=== PATIENT | female | born 1990 | race Caucasian/White ===

== ENCOUNTER 2017-08-20 14:24 | Outpatient (CLI) | payer BC, OTHER | END 2017-08-20 14:25 | disposition home or self-care (01) | LOC: BICULT 14:24 | PROVIDERS: ATTEND Family Medicine | DX: N83.209 Unspecified ovarian cyst, unspecified side (principal); R10.2 Pelvic and perineal pain; G43.909 Migraine, unspecified, not intractable, without status migrainosus | CPT/HCPCS: 76856 ==

== ENCOUNTER 2018-01-23 08:42 | Inpatient (IN) | payer BC, OTHER ==
[2018-01-23 09:52] LABS: ALT (SGPT) 26 U/L (8-55); AST (SGOT) 20 U/L (5-34); Alkaline Phosphatase 78 U/L (40-150); Anion Gap 10 mmol/L (10-20); BUN (Urea Nitrogen) 6 mg/dL (7.0-18.7); Bilirubin, Total 0.4 mg/dL (0.2-1.2); Calc. Creatinine Clearance 0 mL/min (70-130); Calcium 9.3 mg/dL (7.8-10.44); Carbon Dioxide 24 mmol/L (22-29); Chloride 110 mmol/L (98-107); Estimated GFR-MDRD 78; Globulin 2.8 g/dL (2.4-3.5); Glucose 97 mg/dL (70-105); Potassium 4.2 mmol/L (3.5-5.1); Protein, Total 6.8 g/dL (6.0-8.3); Sodium 140 mmol/L (136-145)
[2018-01-23 09:55] LABS: #Basophils 0.1 thou/uL (0.0-0.2); #Eosinphils 0.4 thou/uL (0.0-0.7); #Lymphocytes 2.8 thou/uL (1.20-3.40); #Monocytes 0.8 thou/uL (0.11-0.59); #Neutrophils 9.3 thou/uL (1.40-6.50); %Basophils 0.6 % (0.0-1.0); %Lymphocytes 20.9 % (21.0-51.0); %Monocytes 5.7 % (0.0-10.0); %Neutrophils 69.9 % (42.0-75.0); Hemoglobin 11.5 g/dL (12.0-16.0); Hypochromia SLIGHT = 6-15 cells (100X) (0-5/hpf); MDiff Complete? YES; Mean Corpuscular HGB CONC 31.8 g/dL (32.0-36.0); Mean Corpuscular Hemoglobin 22.9 pg (27.0-31.0); Microcytosis SLIGHT = 6-15 cells (100X) (0-5/hpf); PLT Morphology Comment Appears Adequate; Platelet Count 382 thou/uL (130-400); Red Blood Cell (RBC) Count 5.01 mill/uL (4.20-5.40); White Blood Cell (WBC) Count 13.3 thou/uL (4.8-10.8)
--- NOTE | 2018-01-23 10:12 | CT ---
CT FACIAL BONES WITHOUT CONTRAST: Date: 01/23/18 Multiple axial tomograms obtained through facial bones without IV enhancement. INDICATION: Soft tissue swelling over right eye. Pain and swelling right eye. FINDINGS: Evaluation of subcutaneous abscess is limited without IV contrast. There is a subtle area of low atte nuation within the subcutaneous tissues of the right eyelid measuring approximately 1.0 cm, which cou ld potentially represent a small fluid or abscess collection. No other definite evidence of fluid or abscess. Process is preseptal. Retroorbital structures appear unremarkable and symmetric. The paranasal sinuses are well aerated. There is a mucus retention cyst in a left sphenoid air cell m easuring 1.0 cm. The mastoid air cells are well aerated and clear. There is no osseous abnormality se en. IMPRESSION: Soft tissue edema and inflammatory change agent the right eye consistent with the history of celluliti s. Evaluation of abscess is limited without IV contrast. A subtle area of low attenuation within the subcutaneous tissues over the right eyelid could potentially represent a small fluid/abscess collecti on. No other significant findings. POS: LORRI
[2018-01-23] MEDS ORDERED: Fentanyl 100 MCG/2 ML VIAL ONE ×2 (10:17→11:50)
[2018-01-23] MEDS ORDERED: Piperacillin/Tazobactam 4.5 GM VIAL ONE (10:17)
[2018-01-23] MEDS ORDERED: Sodium Chloride 0.9% 0 ML ONE (10:20)
[2018-01-23 13:32] VITALS: BMI 39.2
[2018-01-23] MEDS ORDERED: Calcium Carbonate 500 MG ChewTAB PO PRN (14:01)
[2018-01-23] MEDS ORDERED: Acetaminophen 325 MG TAB PO PRN (14:01)
[2018-01-23] MEDS ORDERED: traMADol HCl 50 MG TAB PO PRN (14:12)
[2018-01-23] MEDS ORDERED: Fentanyl 100 MCG/2 ML VIAL SLOW IVP PRN (14:22)
--- NOTE | 2018-01-23 14:33 | PDOC.FPRHP ---
- History of Present Illness Chief Complaint: Rt eye swelling and pain History of Present Illness: 27 yo F w/o significant PMH presents for rt eye swelling and pain. Reports symptoms started Sunday with a localized pustule on the rt medial brow ridge which subsequently worsened to a point her eye became swollen shut by AM. She has sought treatment at urgent care and was given medication for pain control and an incision and drainage was performed. She denies vision loss. She reports pain in the indurated area in addition to her rt maxiallary sinus with radiation into her teeth. She has occasional pain with eye movement when her eyelid is closed. She denies any inciting events/trauma to the area. Reports some nausea with use of pain medications, but otherwise denies fever, chills, sweats, cough, neck pain, dysphagia, odynophagia, cp, sob. ED Course: 1gm vancomycin, 3.375 gm zosyn, fentanyl 50mcg - Allergies/Adverse Reactions Allergies Allergy/AdvReac Type Severity Reaction Status Date / Time morphine Allergy Verified 01/26/15 09:43 - Home Medications Medication Instructions Recorded Confirmed Type MedroxyPROGESTERone [Depo-Provera] 150 mg IM Q90D 01/26/15 01/23/18 History Pregabalin [Lyrica] 150 mg PO QPM 01/23/18 01/23/18 History - History PMHx: None PSHx: None FHx: Paternal and maternal DMII and cardiac disease, unknown type Social: Denies tobacco, social alcohol, denies drugs - Review of Systems General: denies: fever/chills, weight/appetite/sleep changes Eyes: reports: eye pain. denies: vision changes ENT: denies: nasal congestion, rhinorrhea Respiratory: denies: cough, congestion, shortness of breath Cardiovascular: denies: chest pain, edema Gastrointestinal: reports: nausea. denies: vomiting, diarrhea, constipation, abdominal pain Genitourinary: denies: incontinence, dysuria Skin: reports: lesions. denies: itching Musculoskeletal: denies: pain, tenderness Neurological: reports: numbness. denies: weakness - Vital signs BP: 125/84 HR: 76 RR: 16 Tmax: 98.7 Pox: 100% on RA Wt: 127Kg - Physical Exam Constitutional: NAD, awake, alert and oriented, well developed HEENT: normocephalic and atraumatic, PERRLA, EOMI, conjunctiva clear, grossly normal vision, grossly normal hearing -HEENT: no chemosis, EOMI, no proptosis, no conjunctival injection. Significantly swollen Rt eyelid w/ approx 1cm area of induration on the rt superomedial aspect of orbit. Punctate erythematous papule rt brow ridge, w/o drainage Neck: supple, trachea midline, no LAD Heart: RRR, normal S1/S2, no murmurs/rubs/gallops, pulses present Lungs: CTAB, no respiratory distress, good air movement, no wheezing Abdomen: soft, non-tender, bowel sounds present Musculoskeletal: normal structure, ROM grossly normal Neurological: other (paresthesias involving V2 branch of facial nerve, otherwise normal CNII-XII) Skin: good turgor, no jaundice Heme/Lymphatic: no unusual bruising or bleeding Psychiatric: normal mood and affect FMR H&P: Results - Labs Result Diagrams: 01/23/18 09:15 01/23/18 09:15 Lab results: WBC 13.3 thou/uL (4.8-10.8) H 01/23/18 09:15 Hgb 11.5 g/dL (12.0-16.0) L 01/23/18 09:15 Hct 36.1 % (36.0-47.0) 01/23/18 09:15 MCV 72.0 fL (78.0-98.0) L 01/23/18 09:15 Plt Count 382 thou/uL (130-400) 01/23/18 09:15 Neutrophils % 69.9 % (42.0-75.0) 01/23/18 09:15 Sodium 140 mmol/L (136-145) 01/23/18 09:15 Potassium 4.2 mmol/L (3.5-5.1) 01/23/18 09:15 Chloride 110 mmol/L (98-107) H 01/23/18 09:15 Carbon Dioxide 24 mmol/L (22-29) 01/23/18 09:15 BUN 6 mg/dL (7.0-18.7) L 01/23/18 09:15 Creatinine 0.87 mg/dL (0.6-1.1) 01/23/18 09:15 Glucose 97 mg/dL (70-105) 01/23/18 09:15 Lactic Acid 0.8 mmol/L (0.5-2.2) 01/23/18 09:15 Calcium 9.3 mg/dL (7.8-10.44) 01/23/18 09:15 Total Bilirubin 0.4 mg/dL (0.2-1.2) 01/23/18 09:15 AST 20 U/L (5-34) 01/23/18 09:15 ALT 26 U/L (8-55) 01/23/18 09:15 Alkaline Phosphatase 78 U/L (40-150) 01/23/18 09:15 Serum Total Protein 6.8 g/dL (6.0-8.3) 01/23/18 09:15 Albumin 4.0 g/dL (3.5-5.0) 01/23/18 09:15 - Radiology Interpretation CT scan - head Status: image reviewed by me, report reviewed by me (Edema and inflammatory changes over rt eye with possible area of fluid/abscess collection) FMR H&P: A/P - Problem List (1) Preseptal cellulitis of right eye Current Visit: Yes Status: Acute Code(s): L03.213 - PERIORBITAL CELLULITIS (2) Leukocytosis Current Visit: Yes Status: Acute Code(s): D72.829 - ELEVATED WHITE BLOOD CELL COUNT, UNSPECIFIED (3) Microcytic anemia Current Visit: Yes Status: Acute Code(s): D50.9 - IRON DEFICIENCY ANEMIA, UNSPECIFIED - Plan 1) Preseptal cellulitis vs orbital cellulitis w/ possible abscess - admit medical - cont broad spectrum abx vanc and zosyn - Dr Randall Opthomology has been consulted, appreciate recommendations - tramadol and tylenol for pain control - currently EOMI, no conjunctival injection and visual acuity intact. PERRLA. No chemosis, no opthalmoplegia and no proptosis, will cont to monitor - reg diet, NPO @ midnight pending optho evaluation 2) Leukocytosis: - 2/2 #1, see above - will trend 3) Microcytic anemia - stable, will trend - consider OP f/u and iron studies Code Status: Full Code PPX: SCDs, Tums PRN for DVT and GI PPX, respectively PCP: Dr. Rachael Brown Disposition/LOS: Stable, >/= 2 days Attending Addendum - Attending Addendum Date/Time: 01/23/18 1666 I personally evaluated the patient and discussed the management with Dr. Barillas. I agree with the History, Examination, Assessment and Plan documented above with any addition or exceptions noted below. 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 She presented to the ED for rt eye swelling and pain. Reports symptoms started Sunday with a localized pustule on the rt medial brow ridge which subsequently worsened to a point her eye became swollen shut by SUNDAY (yesterday) AM. She went to urgent care and had I&D and was given medication (sounds like Bactrim bid) and Toradol for pain. She denies vision loss. She reports pain in the indurated area in addition to her rt maxiallary and frontal sinus areas with radiation into her teeth. She has occasional pain with eye movement when her eyelid is closed. She denies any inciting events/trauma to the area. Reports some nausea with use of pain medications, but otherwise denies fever, chills, sweats, cough , neck pain, dysphagia, odynophagia, cp, sob. Since arrival she can open the eyelid better, but induration is worse in medial canthus. Shes been using hot packs. On my exam vision intact, EOM Full, eyelid swollen, red. No pus. Pupils ERRL. ENT otherwise negative. No adenopathy. PSHx: Gastric Bypass, Take down of Gastric Bypass, and Gastric sleeve. No diabetes. Takes Lyrica for burning pain/nerve problem [address] report noted, No retrobulbar involvement. Remainder of exam as per Dr. Barillas above. A: Preseptal Cellulitis. P: Continue Vanc/Zosyn. Recommended Ice/Cold packs for pain and swelling. MD Ct ED Course:
[2018-01-23] MEDS ORDERED: Ketorolac Tromethamine 30 MG/ML VIAL IVP SCH (15:15)
[2018-01-23] MEDS: Piperacillin/Tazobactam 4.5 GM in Sodium Chloride 0.9% 100 ML IVPB SCH ×2 (18:03→23:01)
[2018-01-23] MEDS: traMADol HCl 50 MG TAB PO SCH ×2 (18:04→23:01)
[2018-01-23] MEDS: Pregabalin 75 MG CAP PO SCH (20:19)
[2018-01-23] MEDS ORDERED: Non-Formulary Item 1 EACH (Pregabalin [Lyrica] 150 MG) PO SCH (21:00)
[2018-01-24] MEDS: traMADol HCl 50 MG TAB PO SCH ×3 (05:16→17:11)
[2018-01-24] MEDS: Piperacillin/Tazobactam 4.5 GM in Sodium Chloride 0.9% 100 ML IVPB SCH ×3 (05:17→17:07)
[2018-01-24 06:07] LABS: #Eosinphils 0.4 thou/uL (0.0-0.7); #Neutrophils 7.1 thou/uL (1.40-6.50); %Basophils 0.4 % (0.0-1.0); %Eosinophils 3.4 % (0.0-10.0); %Lymphocytes 19.2 % (21.0-51.0); %Monocytes 9.7 % (0.0-10.0); %Neutrophils 67.3 % (42.0-75.0); Hemoglobin 10.7 g/dL (12.0-16.0); Mean Corpuscular HGB CONC 32.5 g/dL (32.0-36.0); Mean Corpuscular Hemoglobin 24.6 pg (27.0-31.0); Mean Corpuscular Volume 75.9 fL (78.0-98.0); Mean Platelet Volume 7.7 fL (7.4-10.4); Platelet Count 352 thou/uL (130-400); RBC Distribution Width 13.3 % (11.5-14.5); Red Blood Cell (RBC) Count 4.33 mill/uL (4.20-5.40); White Blood Cell (WBC) Count 10.5 thou/uL (4.8-10.8)
[2018-01-24 06:17] LABS: Anion Gap 11 mmol/L (10-20); BUN (Urea Nitrogen) 8 mg/dL (7.0-18.7); Calc. Creatinine Clearance 189 mL/min (70-130); Calcium 8.9 mg/dL (7.8-10.44); Carbon Dioxide 22 mmol/L (22-29); Chloride 109 mmol/L (98-107); Estimated GFR-MDRD 76; Glucose 94 mg/dL (70-105); Potassium 4.2 mmol/L (3.5-5.1); Sodium 138 mmol/L (136-145)
--- NOTE | 2018-01-24 08:14 | PDOC.FM ---
- Subjective Subjective: No acute events overnight. Rpts improvement of pain and swelling overnight. Denies pain with eye movement. - Objective Vital Signs & Weight: Vital Signs (12 hours) Temp Pulse Resp BP Pulse Ox 01/24/18 04:35 97.6 F 79 18 118/73 96 01/24/18 00:00 97.8 F 78 18 113/75 98 Weight Weight 127.505 kg I&O: 01/23/18 01/24/18 01/25/18 06:59 06:59 06:59 Intake Total 1660 Balance 1660 Result Diagrams: 01/24/18 05:39 01/24/18 05:39 <Eddie Barillas - Last Filed: 01/24/18 08:12> - Objective Vital Signs & Weight: Vital Signs (12 hours) Temp Pulse Resp BP Pulse Ox 01/24/18 08:00 98.4 F 87 16 155/96 H 99 01/24/18 04:35 97.6 F 79 18 118/73 96 01/24/18 00:00 97.8 F 78 18 113/75 98 Weight Weight 127.505 kg I&O: 01/23/18 01/24/18 01/25/18 06:59 06:59 06:59 Intake Total 1660 Balance 1660 Result Diagrams: 01/24/18 05:39 01/24/18 05:39 <Ezequiel Arias - Last Filed: 01/24/18 10:28> Phys Exam - Physical Examination Constitutional: NAD HEENT: PERRLA, sclera anicteric Periorbital swelling improved from yesterday, able to open eye Neck: no nodes, no JVD Respiratory: no wheezing, no rales, no rhonchi, clear to auscultation bilateral Cardiovascular: RRR, no significant murmur, no rub Gastrointestinal: soft, non-tender, no distention, positive bowel sounds Musculoskeletal: no edema, pulses present Neurological: non-focal, moves all 4 limbs Skin: no rash, cap refill <2 seconds <Eddie Barillas - Last Filed: 01/24/18 08:12> Dx/Plan (1) Preseptal cellulitis of right eye Code(s): L03.213 - PERIORBITAL CELLULITIS Status: Acute (2) Leukocytosis Code(s): D72.829 - ELEVATED WHITE BLOOD CELL COUNT, UNSPECIFIED Status: Acute (3) Microcytic anemia Code(s): D50.9 - IRON DEFICIENCY ANEMIA, UNSPECIFIED Status: Acute - Plan Plan: 1) Preseptal cellulitis vs orbital cellulitis w/ possible abscess - admit medical - cont broad spectrum abx vanc and zosyn - Dr Randall Opthomology has been consulted, appreciate recommendations - I & D'd bedside by optho, will advance diet today - cont abx and consider dc later today or tomorrow - will need cont OP abx 2) Leukocytosis: - resolved - 2/2 #1 3) Microcytic anemia - stable, will trend - consider OP f/u and iron studies Dispo: I&D bedside by optho. Normal diet. Possible d/c to home today or tomorrow pending optho recs. COntinue madelaine pain control. <Eddie Barillas - Last Filed: 01/24/18 08:12> Attending Addendum - Attending Addendum Date/Time: 01/24/18 1027 I personally evaluated the patient and discussed the management with Dr. Barillas. I agree with the History, Examination, Assessment and Plan documented above with any addition or exceptions noted below. Patient overall doing well, but has some current increase in pain due to her recent I&D procedure with Ophtho. Otherwise, swelling and pain greatly improved since yesterday. Continue abx therapy and wound care. Await any further recommendations from Dr. Ryan. Continue Vanc and Zosyn today. If doing well tomorrow, consider d/c home with course of oral abx. <Ezequiel Arias - Last Filed: 01/24/18 10:28>
[2018-01-24] MEDS ORDERED: Fentanyl 100 MCG/2 ML VIAL SLOW IVP SCH (09:15)
[2018-01-24] MEDS: Ondansetron HCl/PF 4 MG/2 ML Vial IVP PRN ×2 (09:42→16:00)
[2018-01-24] MEDS: Ondansetron ODT 4 MG TAB PO PRN (20:36)
[2018-01-24] MEDS: Pregabalin 75 MG CAP PO SCH (20:36)
[2018-01-24 22:22] LABS: Vancomycin, Trough 16.2 ug/mL
[2018-01-25] MEDS: traMADol HCl 50 MG TAB PO SCH ×3 (00:18→11:52)
[2018-01-25] MEDS: Piperacillin/Tazobactam 4.5 GM in Sodium Chloride 0.9% 100 ML IVPB SCH ×3 (00:19→11:50)
[2018-01-25 04:57] LABS: #Basophils 0.1 thou/uL (0.0-0.2); #Eosinphils 0.6 thou/uL (0.0-0.7); #Lymphocytes 3.9 thou/uL (1.20-3.40); %Basophils 0.7 % (0.0-1.0); %Eosinophils 5.1 % (0.0-10.0); %Lymphocytes 30.8 % (21.0-51.0); %Monocytes 7.7 % (0.0-10.0); %Neutrophils 55.8 % (42.0-75.0); Hemoglobin 10.5 g/dL (12.0-16.0); Mean Corpuscular HGB CONC 32.2 g/dL (32.0-36.0); Mean Corpuscular Hemoglobin 24.6 pg (27.0-31.0); Mean Corpuscular Volume 76.6 fL (78.0-98.0); Mean Platelet Volume 7.8 fL (7.4-10.4); Platelet Count 367 thou/uL (130-400); RBC Distribution Width 13.3 % (11.5-14.5); Red Blood Cell (RBC) Count 4.28 mill/uL (4.20-5.40); White Blood Cell (WBC) Count 12.6 thou/uL (4.8-10.8)
[2018-01-25 05:04] LABS: Anion Gap 9 mmol/L (10-20); BUN (Urea Nitrogen) 5 mg/dL (7.0-18.7); Calc. Creatinine Clearance 219 mL/min (70-130); Carbon Dioxide 26 mmol/L (22-29); Chloride 108 mmol/L (98-107); Estimated GFR-MDRD 89; Glucose 90 mg/dL (70-105); Potassium 4.1 mmol/L (3.5-5.1); Sodium 139 mmol/L (136-145)
--- NOTE | 2018-01-25 06:18 | PDOC.FM ---
- Subjective Subjective: No acute evetns overnight. Pt reports continued improvement in her pain. She had the area of induration incised and drained yesterday and a small amount of purulent material was expressed. She reports continued purulent drainage throughout the day with use of warm compresses. She denies fever, chills, sweats , cp, sob, VDC. Occasional nausea during I&D procedure which has since resolved. - Objective Vital Signs & Weight: Vital Signs (12 hours) Temp Pulse Resp BP Pulse Ox 01/24/18 20:00 98.2 F 84 20 139/71 97 Weight Weight 127.505 kg I&O: 01/23/18 01/24/18 01/25/18 06:59 06:59 06:59 Intake Total 1660 720 Balance 1660 720 Result Diagrams: 01/25/18 04:25 01/25/18 04:25 <Eddie Barillas - Last Filed: 01/25/18 06:20> - Objective Vital Signs & Weight: Vital Signs (12 hours) Temp Pulse Resp BP Pulse Ox 01/25/18 08:00 98.1 F 83 20 102/61 96 Weight Weight 127.505 kg I&O: 01/24/18 01/25/18 01/26/18 06:59 06:59 06:59 Intake Total 1660 720 Balance 1660 720 Result Diagrams: 01/25/18 04:25 01/25/18 04:25 <Ezequiel Arias - Last Filed: 01/25/18 08:47> Phys Exam - Physical Examination Constitutional: NAD HEENT: PERRLA, moist MMs, sclera anicteric edematous rt eye, improved from prior exam Neck: no nodes, no JVD Respiratory: no wheezing, no rales, no rhonchi, clear to auscultation bilateral Cardiovascular: RRR, no significant murmur, no rub Gastrointestinal: soft, non-tender, no distention, positive bowel sounds Musculoskeletal: no edema, pulses present Neurological: non-focal, moves all 4 limbs Psychiatric: normal affect Skin: no rash <Eddie Barillas - Last Filed: 01/25/18 06:20> Dx/Plan (1) Preseptal cellulitis of right eye Code(s): L03.213 - PERIORBITAL CELLULITIS Status: Acute (2) Leukocytosis Code(s): D72.829 - ELEVATED WHITE BLOOD CELL COUNT, UNSPECIFIED Status: Acute Qualifiers: Leukocytosis type: leukemoid reaction Qualified Code(s): D72.823 - Leukemoid reaction (3) Microcytic anemia Code(s): D50.9 - IRON DEFICIENCY ANEMIA, UNSPECIFIED Status: Chronic - Plan Plan: 1) Preseptal cellulitis vs orbital cellulitis w/ possible abscess - continues to improve - cont broad spectrum abx and monitor clinically - if persistent improvement throughout the day ok to DC to home with dual coverage abx - optho consulted, appreciate recs 2) Leukocytosis: -Increased this am, vanc trough therapeutic - neutrophils decreased and no significant bump in platelets, and pt remains afebrile - will recheck this PM 3) Microcytic anemia - stable, will trend - recommend OP f/u and Iron studies Dispo: Pt reports cont improvement in pain and swelling. She has good visual acuity and EOMI. Likely stable for DC to home later today or tomorrow pending optho recommendations. <Eddie Barillas - Last Filed: 01/25/18 06:20> Attending Addendum - Attending Addendum Date/Time: 01/25/18 0846 I personally evaluated the patient and discussed the management with Dr. Barillas. I agree with the History, Examination, Assessment and Plan documented above with any addition or exceptions noted below. Patient doing well this morning. Pain well controlled and swelling/erythema improved. Will discuss case with Ophtho but likely transition to PO abx and discharge home later today. <Ezequiel Arias - Last Filed: 01/25/18 08:47>
[2018-01-25] MEDS: Ondansetron ODT 4 MG TAB PO PRN (06:33)
[2018-01-25 08:14] VITALS: BP 102/61; TEMP 98.1
== END 2018-01-25 13:54 | disposition home or self-care (01) | DRG 603 ==
LOC: SCSER 08:42 → T4-A 10:36
PROVIDERS: ADMIT Student in an Organized Health Care Education/Training Program; ATTEND Student in an Organized Health Care Education/Training Program
PROC: 0H91XZZ Drainage of Face Skin, External Approach (ICD-10-PCS; principal; 2018-01-23)
DX: L03.213 Periorbital cellulitis (principal); D64.9 Anemia, unspecified
CPT/HCPCS: 36415; 70486; 80048; 80053; 80202; 83605; 85025; 87040; 96365; 96367; 96375; 96376; A4216; J1885; J2405; J2543; J3010; J3370; J7050; Q0162

== ENCOUNTER 2018-07-16 10:17 | Emergency (ER) | payer BC, OTHER ==
[2018-07-16] MEDS ORDERED: diphenhydrAMINE 50 MG/ML VIAL ONE (10:54)
[2018-07-16] MEDS ORDERED: Prochlorperazine 10 MG/2 ML VIAL ONE (10:54)
[2018-07-16] MEDS ORDERED: Ketorolac Tromethamine 30 MG/ML VIAL ONE (10:54)
== END 2018-07-16 12:07 | disposition home or self-care (01) ==
LOC: SCSER 10:17
DX: G43.909 Migraine, unspecified, not intractable, without status migrainosus (principal); E03.9 Hypothyroidism, unspecified; F31.9 Bipolar disorder, unspecified; F17.210 Nicotine dependence, cigarettes, uncomplicated
CPT/HCPCS: 96365; 96375; J0780; J1200; J1885

== ENCOUNTER 2022-08-18 12:50 | Outpatient (CLI) | payer OTHER | END 2022-08-18 12:51 | disposition home or self-care (01) | LOC: TBSIIMAG 12:50 | PROVIDERS: ATTEND Physician Assistant | DX: M51.16 Intervertebral disc disorders with radiculopathy, lumbar region (principal); M47.26 Other spondylosis with radiculopathy, lumbar region; M50.122 Cervical disc disorder at C5-C6 level with radiculopathy; M50.123 Cervical disc disorder at C6-C7 level with radiculopathy; M48.02 Spinal stenosis, cervical region; M47.22 Other spondylosis with radiculopathy, cervical region | CPT/HCPCS: 72141; 72146; 72148 ==

== ENCOUNTER 2023-02-06 08:43 | Day surgery (SDC) | payer OTHER ==
[~2023-02-06 08:43] MED LIST: Acetaminophen 325 MG TAB PO SCH; diphenhydrAMINE 25 MG CAP PO SCH; methylPREDNISolone Sod Succ/PF 125 MG/2 ML VIAL IVP SCH
[2023-02-06] MEDS ORDERED: OCRELIZUMAB IV SCH (09:00)
[2023-02-06] MEDS ORDERED: SODIUM CHLORIDE 0.9% IV SCH (09:00)
[2023-02-06] MEDS ORDERED: Acetaminophen 325 MG TAB ONE (09:21)
[2023-02-06] MEDS ORDERED: diphenhydrAMINE 25 MG CAP ONE (09:21)
[2023-02-06] MEDS ORDERED: methylPREDNISolone Sod Succ/PF 125 MG/2 ML VIAL ONE (09:47)
[2023-02-06 15:37] VITALS: BP 132/73; TEMP 98.4
== END 2023-02-06 14:50 | disposition home or self-care (01) ==
LOC: ONC/OP 08:43
PROVIDERS: ATTEND Psychiatry & Neurology Neurology
DX: G35 Multiple sclerosis (principal)
CPT/HCPCS: 96375; 96413; 96415; J2930

== ENCOUNTER 2023-02-21 08:29 | Day surgery (SDC) | payer OTHER ==
[2023-02-21] MEDS ORDERED: diphenhydrAMINE 25 MG CAP PO SCH (08:30)
[2023-02-21] MEDS ORDERED: methylPREDNISolone Sod Succ/PF 125 MG/2 ML VIAL IVP SCH (08:30)
[2023-02-21] MEDS ORDERED: Acetaminophen 325 MG TAB PO SCH (08:30)
[2023-02-21] MEDS ORDERED: methylPREDNISolone Sod Succ/PF 125 MG/2 ML VIAL ONE (08:58)
[2023-02-21] MEDS ORDERED: Acetaminophen 325 MG TAB ONE (08:58)
[2023-02-21] MEDS ORDERED: diphenhydrAMINE 25 MG CAP ONE (08:58)
[2023-02-21] MEDS ORDERED: OCRELIZUMAB IV SCH (09:00)
[2023-02-21] MEDS ORDERED: SODIUM CHLORIDE 0.9% IV SCH (09:00)
[2023-02-21 13:52] VITALS: BP 142/82; TEMP 98.2
== END 2023-02-21 13:35 | disposition home or self-care (01) ==
LOC: ONC/OP 08:29
PROVIDERS: ATTEND Psychiatry & Neurology Neurology
DX: G35 Multiple sclerosis (principal); Z88.5 Allergy status to narcotic agent
CPT/HCPCS: 96375; 96413; 96415; J2350; J2930; J7050

== ENCOUNTER 2023-04-20 07:59 | Day surgery (SDC) | payer OTHER ==
[2023-04-20 08:01] LABS: #Eosinphils 0.3 thou/uL (0.0-0.7); #Monocytes 0.8 thou/uL (0.11-0.59); #Neutrophils 4.7 thou/uL (1.40-6.50); %Basophils 0.5 % (0.0-1.0); %Eosinophils 4.2 % (0.0-10.0); %Lymphocytes 23.5 % (21.0-51.0); %Monocytes 9.9 % (0.0-10.0); %Neutrophils 61.8 % (42.0-75.0); Hematocrit 36.7 % (36.0-47.0); Hemoglobin 10.9 g/dL (12.0-16.0); Mean Corpuscular HGB CONC 29.7 g/dL (32.0-36.0); Mean Corpuscular Hemoglobin 22.2 pg (27.0-31.0); Mean Corpuscular Volume 74.7 fl (78.0-98.0); Platelet Count 555 10x3/uL (130-400); RBC Distribution Width 15.4 % (11.5-14.5); Red Blood Cell (RBC) Count 4.91 mill/uL (4.20-5.40); White Blood Cell (WBC) Count 7.6 10x3/uL (4.8-10.8)
[2023-04-20 08:17] LABS: BHCG - Serum Negative (NEGATIVE); Pregs Control Background? CLEAR/WHITE (CLR/WHITE); Pregs Control Bar Appear? YES (CONTROL BAR)
[2023-04-20 08:23] LABS: ALT (SGPT) 26 U/L (8-55); AST (SGOT) 32 U/L (5-34); Albumin 4.7 g/dL (3.5-5.0); Alkaline Phosphatase 76 U/L (40-110); Anion Gap 13 mmol/L (10-20); BUN (Urea Nitrogen) 9 mg/dL (7.0-18.7); Bilirubin, Total 0.3 mg/dL (0.2-1.2); CRP (Inflammatory) Less than 0.50 mg/dL (= or < 0.5); Calc. Creatinine Clearance 0 mL/min (70-130); Calcium 9.5 mg/dL (7.8-10.44); Carbon Dioxide 24 mmol/L (22-29); Chloride 106 mmol/L (98-107); Estimated GFR 103; Globulin 2.4 g/dL (2.4-3.5); Glucose 87 mg/dL (70-105); Potassium 3.9 mmol/L (3.5-5.1); Protein, Total 7.1 g/dL (6.0-8.3); Sodium 139 mmol/L (136-145)
[2023-04-20 08:37] LABS: CellaVision Operator ID LAB.GE; Hypochromia SLIGHT = 6-15 cells HPF (0-5); Large Platelets 2.1 % (0-5); Microcytosis SLIGHT = 6-15 cells HPF (0-5); Platelet Adequacy Comment Platelets Increased; Polychromasia SLIGHT = 2-3 cells HPF (0-2)
[2023-04-20 10:05] LABS: CSF Source CSF; Clarity Clear (Clear); Tube # 4
[2023-04-20 10:33] LABS: CSF, Glucose 56 mg/dl (40-70); CSF, Protein 18 mg/dL (15-40)
[2023-04-20 11:00] LABS: Reference Lab Name LABCORP
[2023-04-20 11:46] VITALS: TEMP 98
[2023-04-20 12:07] VITALS: BP 147/87
[2023-04-20 15:10] LABS: Color Of CSF Supernatant COLORLESS (Colorless); Tube # 1; Unspun CSF Color COLORLESS (Colorless)
[2023-04-24 11:39] LABS: VDRL, CSF Non Reactive (Non Rea:<1:1)
[2023-04-24 13:09] LABS: ANA Symphony (Qualitative) Negative (Negative); ANA Symphony (Quantitative) Less than 0.1 Ratio (< 0.7 Negative); dsDNA IgG Antibody Less than 0.6 IU/mL (<10 Negative)
== END 2023-04-20 10:10 | disposition home or self-care (01) ==
LOC: RAD 07:59
PROVIDERS: ATTEND Psychiatry & Neurology Neurology
PROC: 00JU3ZZ Inspection of Spinal Canal, Percutaneous Approach (ICD-10-PCS; principal; 2023-04-20)
DX: G37.9 Demyelinating disease of central nervous system, unspecified (principal)
CPT/HCPCS: 36415; 62270; 80053; 82040; 82042; 82525; 82607; 82746; 82784; 82945; 83873; 83916; 84157; 84425; 84443; 84703; 85025; 86038; 86140; 86225; 86592; 86612; 86618; 86635; 86698; 87529; 87899; 89051

== ENCOUNTER 2023-04-24 12:53 | Outpatient (CLI) | payer OTHER | END 2023-04-24 12:54 | disposition home or self-care (01) | LOC: SCSMRI 12:53 | PROVIDERS: ATTEND Psychiatry & Neurology Neurology | DX: G37.9 Demyelinating disease of central nervous system, unspecified (principal); K44.9 Diaphragmatic hernia without obstruction or gangrene; M53.82 Other specified dorsopathies, cervical region; R90.82 White matter disease, unspecified | CPT/HCPCS: 70553; 72156; 72157 ==